=== PATIENT | male | born 1970 | race American Indian/Alaskan Native ===

== ENCOUNTER 2018-07-07 23:37 | Emergency (ER) | payer BC ==
[2018-07-07 23:37] VITALS: BMI 35.7
[2018-07-07 23:45] VITALS: BP 149/88; PULSE 67; TEMP 98.4; O2SAT 99
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
[2018-07-08 01:02] VITALS: RESP 20
--- NOTE | 2018-07-08 09:08 | RAD ---
Date of service: 07/08/2018 PROCEDURE: LEFT HIP WITH PELVIS RADIOGRAPHS HISTORY: pain to left hip COMPARISON: Abdomen KUB 03/28/2015. TECHNIQUE: Frontal views of the pelvis and left hip joint of been submitted with frog-leg lateral view left hip joint. FINDINGS: No acute fracture or dislocation left hip joint with pelvic ring remaining intact. No focal destructive bony lesion appreciable. Pubic ring appears intact once again. Pubic symphysis is intact. Mild degenerative changes seen the bilateral hip joints symmetrically. Local soft tissues appear diffusely unremarkable. IMPRESSION: No acute fracture or dislocation left hip joint with pelvic ring intact grossly.
== END 2018-07-08 01:01 | disposition home or self-care (01) ==
LOC: C.ER 23:37
DX: M25.552 Pain in left hip (principal)
CPT/HCPCS: 73502; 96372; 99284; J1885